=== PATIENT | female | born 1980 | race Caucasian/White ===

== ENCOUNTER → 2016-12-29 | Outpatient (CLI) | payer OTHER ==
[~2016-12-29] MED LIST: ASPIRIN CHEWABL81 MG PO; Amitriptyline H10 MG PO; CLEOCIN HCL300 MG PO; CYCLOBENZAPRINE5 M3 PO; FLUTICASON0.05 MG/Ac NAS; LIPITOR20 MG PO; LOTRIMIN 1%15 GM T; Motrin,Rufen800 MG PO; NEURONTIN300 MG PO; NORCO 5-325 TA1 EACH PO; PRENATAL PLUS1 EACH PO; RESTORIL15 MG PO; RISPERDAL3 M1 PO; SEASONIQUE1 TAB PO; SINGULAIR10 M1 PO; Synthroid,Lev100 MCG PO; TECFIDERA240 M2 PO; VICO75300 PO; VISTARIL50 MG PO; WELLBUTRIN SR150 MG PO; ZANTAC 150150 MG PO; ZOLOFT50 MG PO
== END | disposition home or self-care (01) ==
LOC: RESCLI 04:17
DX: Z00.00 Encounter for general adult medical examination without abnormal findings (principal); F41.8 Other specified anxiety disorders; I82.503 Chronic embolism and thrombosis of unspecified deep veins of lower extremity, bilateral; K21.9 Gastro-esophageal reflux disease without esophagitis; E03.9 Hypothyroidism, unspecified; E78.2 Mixed hyperlipidemia; I26.92 Saddle embolus of pulmonary artery without acute cor pulmonale; R32 Unspecified urinary incontinence; G89.29 Other chronic pain; G35 Multiple sclerosis; J30.2 Other seasonal allergic rhinitis; E66.01 Morbid (severe) obesity due to excess calories

== ENCOUNTER → 2017-04-13 | Outpatient (CLI) | payer OTHER | END | disposition home or self-care (01) | LOC: RESCLI 02:23 | DX: F41.8 Other specified anxiety disorders (principal); E03.9 Hypothyroidism, unspecified; K21.9 Gastro-esophageal reflux disease without esophagitis; E78.2 Mixed hyperlipidemia; I26.92 Saddle embolus of pulmonary artery without acute cor pulmonale; R32 Unspecified urinary incontinence; G89.29 Other chronic pain; G35 Multiple sclerosis; J30.2 Other seasonal allergic rhinitis; E66.01 Morbid (severe) obesity due to excess calories; I82.503 Chronic embolism and thrombosis of unspecified deep veins of lower extremity, bilateral; F32.9 Major depressive disorder, single episode, unspecified ==

== ENCOUNTER → 2017-08-03 | Outpatient (CLI) | payer OTHER | END | disposition home or self-care (01) | LOC: RESCLI 01:21 | DX: E66.01 Morbid (severe) obesity due to excess calories (principal); E03.9 Hypothyroidism, unspecified; F41.8 Other specified anxiety disorders; K21.9 Gastro-esophageal reflux disease without esophagitis; E78.2 Mixed hyperlipidemia; I26.92 Saddle embolus of pulmonary artery without acute cor pulmonale; G89.29 Other chronic pain; J30.2 Other seasonal allergic rhinitis; G35 Multiple sclerosis; R32 Unspecified urinary incontinence; Z91.038 Other insect allergy status; Z91.048 Other nonmedicinal substance allergy status ==

== ENCOUNTER → 2018-02-08 | Outpatient (CLI) | payer OTHER ==
--- NOTE | ~2018-02-08 | EKG ---
[place], [place] ELECTROCARDIOGRAM REPORT NAME: ANNMARIE SHORT UNIT #: [id number] ROOM: DOCTOR: MARGARETH LOOMIS MD BIRTHDATE: [birth year] DOS: 02/08/2018 TIME: 10:00:26 Rate and rhythm, normal sinus rhythm at 97 beats per minute. [place] interval 140 milliseconds, QRS duration 90 milliseconds, corrected QT interval 450 milliseconds, QRS axis 13. IMPRESSION: Normal EKG. MARGARETH LOOMIS MD CM:EKGRPT:ELECTROCARDIOGRAM REPORT [id number] MARGARETH LOOMIS MD
== END | disposition home or self-care (01) ==
LOC: RESCLI 04:29
DX: Z01.818 Encounter for other preprocedural examination (principal); F41.8 Other specified anxiety disorders; K21.9 Gastro-esophageal reflux disease without esophagitis; E03.9 Hypothyroidism, unspecified; E78.2 Mixed hyperlipidemia; I26.92 Saddle embolus of pulmonary artery without acute cor pulmonale; G35 Multiple sclerosis; J30.2 Other seasonal allergic rhinitis; E66.01 Morbid (severe) obesity due to excess calories; R00.0 Tachycardia, unspecified

== ENCOUNTER → 2018-07-08 | Outpatient (CLI) | payer OTHER | END | disposition home or self-care (01) | LOC: RESCLI 00:58 | DX: Z00.01 Encounter for general adult medical examination with abnormal findings (principal); I82.503 Chronic embolism and thrombosis of unspecified deep veins of lower extremity, bilateral; R32 Unspecified urinary incontinence; F41.8 Other specified anxiety disorders; K21.9 Gastro-esophageal reflux disease without esophagitis; E03.9 Hypothyroidism, unspecified; E78.2 Mixed hyperlipidemia; I26.92 Saddle embolus of pulmonary artery without acute cor pulmonale; J30.2 Other seasonal allergic rhinitis; E66.01 Morbid (severe) obesity due to excess calories; G35 Multiple sclerosis; I83.893 Varicose veins of bilateral lower extremities with other complications; K02.9 Dental caries, unspecified; E66.9 Obesity, unspecified; Z79.899 Other long term (current) drug therapy; Z79.82 Long term (current) use of aspirin ==

== ENCOUNTER → 2018-07-22 | Outpatient (CLI) | payer OTHER ==
--- NOTE | ~2018-07-22 | EKG ---
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
[2018-07-22 16:41] LABS: BASO % 0.5 % (0.0-1.0); EOS # 0.1 10*3/uL (0.0-0.4); LYMPH % 16.7 % (27.0-41.0); MEAN CELL VOLUME 90.9 fl (81.0-99.0); MEAN CORPUSCULAR HGB 29.5 pg (27.0-31.0); MEAN CORPUSCULAR HGB CONC 32.5 g/dl (33.0-37.0); MEAN PLATELET VOLUME 11.7 fl (9.6-12.3); MONO # 0.5 10*3/uL (0.1-1.0); NEUT # 4.3 10*3/uL (2.3-7.9); NEUT % 72.5 % (47.0-73.0); PLATELET COUNT AUTOMATED 213 10*3/uL (130-400); RED CELL DISTRI WIDTH 13.2 % (0-14.5); WHITE BLOOD COUNT 5.9 10*3/uL (4.8-10.8)
[2018-07-22 17:06] LABS: ALBUMIN 3.7 gm/dl (3.1-4.5); ALKALINE PHOSPHATASE 81 U/L (45-117); BUN 6 mg/dl (7-24); CHLORIDE 109 mmol/L (98-107); CREATININE 0.68 mg/dL (0.55-1.02); POTASSIUM 3.8 mmol/L (3.5-5.1); SGOT/AST 11 IU/L (3-35); SGPT/ALT 16 U/L (12-78); SODIUM 141 mmol/L (136-145); TOTAL PROTEIN 7.5 gm/dL (6.4-8.2)
== END | disposition home or self-care (01) ==
LOC: RESCLI 03:30
PROVIDERS: Internal Medicine
DX: Z01.818 Encounter for other preprocedural examination (principal); I82.503 Chronic embolism and thrombosis of unspecified deep veins of lower extremity, bilateral; R32 Unspecified urinary incontinence; F41.8 Other specified anxiety disorders; K21.9 Gastro-esophageal reflux disease without esophagitis; E03.9 Hypothyroidism, unspecified; E78.2 Mixed hyperlipidemia; I26.92 Saddle embolus of pulmonary artery without acute cor pulmonale; J30.2 Other seasonal allergic rhinitis; E66.01 Morbid (severe) obesity due to excess calories; G35 Multiple sclerosis; I83.893 Varicose veins of bilateral lower extremities with other complications; K02.9 Dental caries, unspecified; E66.9 Obesity, unspecified; Z79.899 Other long term (current) drug therapy; Z88.8 Allergy status to other drugs, medicaments and biological substances

== ENCOUNTER → 2018-12-01 | Outpatient (CLI) | payer OTHER | END | disposition home or self-care (01) | LOC: RESCLI 03:27 | DX: I82.503 Chronic embolism and thrombosis of unspecified deep veins of lower extremity, bilateral (principal); I83.893 Varicose veins of bilateral lower extremities with other complications; G35 Multiple sclerosis; R32 Unspecified urinary incontinence; J30.2 Other seasonal allergic rhinitis; E66.01 Morbid (severe) obesity due to excess calories; F41.8 Other specified anxiety disorders; K21.9 Gastro-esophageal reflux disease without esophagitis; E03.9 Hypothyroidism, unspecified; E78.2 Mixed hyperlipidemia; I26.92 Saddle embolus of pulmonary artery without acute cor pulmonale; K02.9 Dental caries, unspecified; R26.89 Other abnormalities of gait and mobility ==

== ENCOUNTER → 2018-12-28 | Outpatient (CLI) | payer OTHER | END | disposition home or self-care (01) | LOC: CARD 09:30 | DX: I26.92 Saddle embolus of pulmonary artery without acute cor pulmonale (principal) ==

== ENCOUNTER → 2019-02-08 | Outpatient (CLI) | payer OTHER | END | disposition home or self-care (01) | LOC: RESCLI 00:46 | DX: G35 Multiple sclerosis (principal); I82.503 Chronic embolism and thrombosis of unspecified deep veins of lower extremity, bilateral; R32 Unspecified urinary incontinence; J30.2 Other seasonal allergic rhinitis; E66.01 Morbid (severe) obesity due to excess calories; I83.893 Varicose veins of bilateral lower extremities with other complications; F41.8 Other specified anxiety disorders; K21.9 Gastro-esophageal reflux disease without esophagitis; E03.9 Hypothyroidism, unspecified; E78.2 Mixed hyperlipidemia; I26.92 Saddle embolus of pulmonary artery without acute cor pulmonale; F32.9 Major depressive disorder, single episode, unspecified; Z79.899 Other long term (current) drug therapy ==

== ENCOUNTER → 2019-04-07 | Outpatient (CLI) | payer OTHER | END | disposition home or self-care (01) | LOC: MRI 09:38 | DX: G35 Multiple sclerosis (principal); R55 Syncope and collapse ==

== ENCOUNTER → 2020-04-26 | Outpatient (CLI) | payer OTHER | END | disposition home or self-care (01) | LOC: RAD 11:58 | DX: M25.562 Pain in left knee (principal) ==

== ENCOUNTER 2023-08-02 19:09 | Emergency (ER) | payer OTHER ==
[~2023-08-02] VITALS: Ht 160 cm
== END 2023-08-02 22:17 | disposition left against medical advice (07) ==
LOC: ED 19:09
DX: R03.0 Elevated blood-pressure reading, without diagnosis of hypertension (principal); R42 Dizziness and giddiness; Z53.21 Procedure and treatment not carried out due to patient leaving prior to being seen by health care provider

== ENCOUNTER → 2023-08-19 | Outpatient (CLI) | payer OTHER | END | disposition home or self-care (01) | LOC: MAMMO 11:00 | PROVIDERS: ATTEND Internal Medicine Nephrology | DX: Z12.31 Encounter for screening mammogram for malignant neoplasm of breast (principal) ==